=== PATIENT | female | born 1950 | race Caucasian/White ===

== ENCOUNTER → 2016-02-15 | Outpatient (REF) ==
[~2016-02-15] MED LIST: CRESTOR5 MG PO; ELMIRON100 MG PO; EPI-PEN1 MG/ML MR; ESTER C1 TA1 PO; NEXIUM 40MG40 MG PO; PERCOCET 325 MG1 TA2 PO; PREMARIN VAG42.5 GM VG; VIACTIV CARAMEL PO; VITAMIN D 400400 IU PO; VIVELLE-DO0.0375 MG/ TD; ZYRTEC 10MG10 MG PO
== END ==
LOC: ZMSC 14:15
DX: Z01.89 Encounter for other specified special examinations (principal)

== ENCOUNTER → 2017-09-21 | Outpatient (REF) | LOC: ZLAB.WCH 16:04 | DX: Z01.89 Encounter for other specified special examinations (principal) ==

== ENCOUNTER → 2018-02-15 | Outpatient (CLI) | payer BC | LOC: MC.RAD 12:23 | DX: Z12.31 Encounter for screening mammogram for malignant neoplasm of breast (principal) ==

== ENCOUNTER → 2019-01-08 | Outpatient (CLI) | payer BC | LOC: COL.RAD 07:47 | DX: K21.0 Gastro-esophageal reflux disease with esophagitis (principal) | CPT/HCPCS: A9541 ==

== ENCOUNTER → 2019-01-10 | Outpatient (CLI) | payer BC | LOC: COL.RAD 07:17 | DX: K21.0 Gastro-esophageal reflux disease with esophagitis (principal) ==

== ENCOUNTER → 2020-06-10 | Outpatient (CLI) | payer BC | LOC: MC.RAD 11:34 | DX: Z12.31 Encounter for screening mammogram for malignant neoplasm of breast (principal) ==